=== PATIENT | female | born 1960 ===

== ENCOUNTER → 2023-04-30 13:06 | Outpatient (BNVA) | payer OTHER, SELFPAY | PROVIDERS: PCP Internal Medicine; Visit Provider Internal Medicine ==

== ENCOUNTER 2023-07-16 09:21 | Outpatient (AMB) | payer OTHER, SELFPAY ==
--- NOTE | 2023-07-16 09:23 | A.OFFVIS_ITS ---
Intake Vital Signs 07/16/23 09:31 Height 5 ft 3 in Weight 192 lb 6 oz BMI 34.1 BP 132/72 Blood Pressure Location Lt brachial Position Sitting Respiration 17 Pulse 67 Pulse Source Pulse Oximeter Pulse Oximetry (%) 94 Oxygen Delivery Method Room Air Intake Visit Reasons: E-FOREST RANGER: Seizure Disorder/ Hx Stoke - LVM Intake Note: Pt presents to the office for new patient evaluation for seizure disorder. She explains she had a fall in 2013 where she struck her head and began to convulse from the impact shortly after. She reports she has about 6 per month and feels they are triggered by her stress level. She also reports she had a stroke in 2018. She has right sided weakness. She often has angina, 2-3 times a day, sharp piercing pain lasting 5 minutes at a time. She take ASA for relief. Head Of Science Required: No Allergies diphenhydramine [From Benadryl] Allergy (Intermediate, Verified 07/16/23 09:42) Rash ciprofloxacin [From Cipro] Allergy (Mild, Verified 07/16/23 09:42) Nausea cortisone Allergy (Mild, Verified 07/16/23 09:42) Anxiety enalaprilat [From Vasotec] Allergy (Mild, Verified 07/16/23 09:42) Anxiety hydroxyzine [From Vistaril] Allergy (Mild, Verified 07/16/23 09:42) Palpitations latex Allergy (Mild, Verified 07/16/23 09:42) Rash meperidine [From Demerol] Allergy (Mild, Verified 07/16/23 09:42) Swelling metoclopramide [From Reglan] Allergy (Mild, Verified 07/16/23 09:42) Nausea and Vomiting Medication List - Last Reconciled 07/16/23 by Paola Zuniga MD albuterol sulfate 90 mcg/actuation (Ventolin HFA) 2 puffs inhalation Q6H PRN amlodipine 5 mg PO DAILY aspirin 81 mg PO DAILY atenolol 25 mg PO DAILY atorvastatin 20 mg PO DAILY benazepril (Lotensin) 10 mg PO DAILY calcium carbonate (Tums) 200 mg PO BID famotidine 10 mg PO DAILY ferrous sulfate 325 mg PO DAILY furosemide 40 mg PO DAILY levetiracetam (Keppra) orally 2 times a day; loratadine (Allergy Relief (loratadine)) 10 mg PO DAILY pantoprazole 20 mg PO DAILY rivaroxaban (Xarelto) 15 mg PO DAILY sertraline 50 mg PO DAILY HPI HPI Comments History of Present Illness Details 63y/o female comes for further managemen t of seizures.Her first seizure was in 2013 - she fell of the bed and hit her head and had seizure.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 she was seen by neurologist and was started on dilantin. she had EEG and MRI. when she moved back to [facility] in Aug 2015 , she was under a lot of stress. she was seen by a neurologist in [place] and was switched to Keppra 200mg qam and 500mg qhs .she had some breakthrough seizures 1/month and now 6-10 /month. she describes her seizures as staring episodes and squeezes her left hand and clenches her teeth lasting few minutes. she moved from [place] to [place] In 2018 and was seen by a neurologist there. she thinks she gets more seizures because of stress. she nance snot drive or work. No h/o alcohol use she has poor sleep, has frequent arousals . she had a sleep study - not sure of the results. [facility] Medical History (Updated 07/16/23 @ 11:00 by Paola Zuniga MD) Sleep disorder Complex partial seizures Snoring GERD (gastroesophageal reflux disease) Scoliosis Asthma Rheumatic carditis HTN (hypertension) Fibromyalgia Fatty liver Depression Rosacea Allergic rhinitis Prediabetes Embolic stroke Seizure Paced rhythm on chronic manager Surgical History Hx of tonsillectomy H/O bilateral breast reduction surgery Hx of cholecystectomy Family History Father Heart disease Carpal tunnel syndrome Arthritis Mother No problems noted. Social History Household Members: Spouse Housing: Homeless Alcohol intake: never Patient Tobacco Use Status: Never used Tobacco Review of Systems Const Reports daytime sleepiness, Reports difficulty sleeping and Reports snoring Resp Reports snoring Musc Reports arthralgias Neuro Reports seizure-like activity Physical Exam Vital Signs: Last Vital Signs Pulse 67 07/16/23 09:31 Resp 17 07/16/23 09:31 BP 132/72 11/14/23 09:31 Pulse Ox 94 07/16/23 09:31 Oxygen Delivery Method Room Air 07/16/23 09:31 BMI result Body Mass Index 34.1 Const General: cooperative and comfortable Nutritional Appearance: overweight Orientation/consciousness: patient oriented x3 Eyes Pupils: Equal, round and reactive pupils present Neuro Other: Limited exam due to generalized pain. right facial weakness Mallampatti grade 4 Right UE 4/5 Right Le 3/5 Poor effort during exam gait mild slowness General: patient oriented x3, tone normal and moves all extremities Cranial nerves: Yes Facial sensation intact/muscles of mastication intact, Yes Equal, round and reactive pupils present, Yes Bilaterally intact EOM present, Yes Nystagmus not present, Yes Midline tongue present and Yes Symmetric palate elevation present Cognition (Neuro): normal cognition Gait exam (Neuro): Antalgic gait present Deep tendon reflexes (DTR's): Right triceps reflex intensity grade: 1+, Left triceps reflex intensity grade: 1+, Rt Biceps (C5, C6): 1+, Left biceps reflex intensity grade: 1+, Right brachioradialis reflex intensity grade: 1+ and Left brachioradialis reflex intensity grade: 1+ Coordination: [id number] test normal Assessment & Plan Assessment & Plan (1) Complex partial seizures: Code(s): G40.209 - Localization-related (focal) (partial) symptomatic epilepsy and epileptic syndromes with complex partial seizures, not intractable, without status epilepticus (2) Snoring: Code(s): R06.83 - Snoring (3) Sleep disorder: Code(s): G47.9 - Sleep disorder, unspecified Plan I will evaluate her with MRI brain and EEG SLeep study to r/o sleep apnea Trileptal 150mg bid continue keppra 2000mg qam and 500mg qhs Patient does not drive Orders: Orders MR head/brain wo con Today R56.9 - Unspecified convulsions EEG electroencephalogram Today R56.9 - Unspecified convulsions RT home sleep study Today G47.10 - Hypersomnia, unspecified, R06.83 - Snoring Medications: New oxcarbazepine (Trileptal) 150 mg PO BID 60 tabs 5RF Coding Level of Care Code New Pt Level 4 (39123) Diagnoses Complex partial seizures G40.209 Snoring R06.83 Sleep disorder G47.9
[2023-07-16 09:31] VITALS: BP 132/72; PULSE 67; RESP 17; O2SAT 94; BMI 34.1
== END 2023-07-16 10:27 | disposition home or self-care (01) ==
PROVIDERS: PCP Internal Medicine; Visit Provider Psychiatry & Neurology Neurology
DX: G40.209 Localization-related (focal) (partial) symptomatic epilepsy and epileptic syndromes with complex partial seizures, not intractable, without status epilepticus (principal); R06.83 Snoring; G47.9 Sleep disorder, unspecified
CPT/HCPCS: 99204

== ENCOUNTER → 2023-07-16 09:21 | Outpatient (BNVA) | payer OTHER, SELFPAY | PROVIDERS: PCP Internal Medicine; Visit Provider Psychiatry & Neurology Neurology | DX: G40.209 Localization-related (focal) (partial) symptomatic epilepsy and epileptic syndromes with complex partial seizures, not intractable, without status epilepticus (principal); R06.83 Snoring; G47.9 Sleep disorder, unspecified | CPT/HCPCS: 99202 ==